=== PATIENT | female | born 1955 | race Caucasian/White ===

== ENCOUNTER → 2017-07-11 | Emergency (ER) | payer OTHER ==
[~2017-07-11] MED LIST: ALLEGRA30 MG PO; CIPRO500 MG PO; DICLOFENAC SODI50 MG PO; FLOVENT DI50 MCG/DIS IH; LOPRESSOR25 MG; NABUMETONE500 MG PO; PERCOCET 5/3251 TAB PO; PROTONIX40 MG PO; SIMVASTATIN20 MG; SINGULAIR10 MG; SYNTHROID75 MCG PO; ZANTAC150 MG PO; ZETIA10 MG; [UNRECOGNIZED DRUG - CODE]
== END | disposition left against medical advice (07) ==
LOC: ER 16:13
DX: Z53.20 Procedure and treatment not carried out because of patient's decision for unspecified reasons (principal)

== ENCOUNTER 2017-11-30 22:16 | Emergency (ER) | payer OTHER ==
[~2017-11-30] VITALS: Ht 149.9 cm; Wt 72.6 kg
[2017-11-30] MEDS ORDERED: OMEPRAZOLE20 M1 (22:30)
== END 2017-12-01 09:42 | disposition home or self-care (01) ==
LOC: ER 22:16
DX: J45.998 Other asthma (principal); R10.84 Generalized abdominal pain; J32.8 Other chronic sinusitis; K21.9 Gastro-esophageal reflux disease without esophagitis

== ENCOUNTER 2018-01-21 01:08 | Emergency (ER) | payer OTHER ==
[~2018-01-21] VITALS: Ht 152.4 cm; Wt 72.6 kg
[~2018-01-21 01:08] MED LIST changes: +OMEPRAZOLE20 M1
[2018-01-21] MEDS ORDERED: PEPCID40 MG PO (04:32)
== END 2018-01-21 04:44 | disposition home or self-care (01) ==
LOC: ER 01:08
DX: I16.0 Hypertensive urgency (principal); I10 Essential (primary) hypertension; K21.9 Gastro-esophageal reflux disease without esophagitis

== ENCOUNTER 2020-05-26 09:12 | Outpatient (CLI) | payer OTHER ==
[~2020-05-26 09:12] MED LIST changes: +PEPCID40 MG PO
== END 2020-05-26 18:00 | disposition home or self-care (01) ==
LOC: LAB 09:12
PROVIDERS: ATTEND Plastic Surgery
DX: U07.1 COVID-19 (principal)

== ENCOUNTER 2020-06-02 05:19 | Day surgery (SDC) | payer OTHER | END 2020-06-02 14:20 | disposition home or self-care (01) | LOC: CIR.AMB 05:19 | PROVIDERS: ATTEND Plastic Surgery | DX: N62 Hypertrophy of breast (principal) ==

== ENCOUNTER 2024-03-07 13:27 | Emergency (ER) | payer OTHER ==
[~2024-03-07] VITALS: Ht 152.4 cm; Wt 71.7 kg
[2024-03-07] MEDS ORDERED: CEPHALEXIN500 M1 PO (14:06)
[2024-03-07] MEDS ORDERED: FAMOtidine 10 MG/ML (4ML VIAL) IV STA (15:07)
[2024-03-07] MEDS ORDERED: MAG HYDROX/ALUMINUM HYD/SIMETH 30 ML BLIST.PACK PO STA (15:08)
[2024-03-07 15:46] LABS: HEMATOCRIT 38.5 % (36.0-45.00); HEMOGLOBIN 13.2 g/dL (12.0-15.00); MEAN CELL VOLUME 86.7 fL (80.00-100.00); MEAN CORPUSCULAR HEMOGLOBIN 29.7 pg (27.00-32.0); MEAN CORPUSCULAR HGB CONC 34.3 g/dl (32.0-36.0); PLATELET COUNT 262 K/uL (150-450); RED BLOOD COUNT 4.44 M/uL (4.00-6.00); RED CELL DISTRIBUTION WIDTH 13.7 % (11.5-14.5)
[2024-03-07 16:08] LABS: CALCIUM 8.9 mg/dL (8.5-10.1); CREATININE SERUM 0.67 mg/dL (0.55-1.02); GFR 87.01; POTASSIUM 4.07 mEq/L (3.5-5.1)
== END 2024-03-07 18:36 | disposition home or self-care (01) ==
LOC: ER 13:29
PROVIDERS: General Practice
DX: R04.0 Epistaxis (principal); R10.9 Unspecified abdominal pain; I10 Essential (primary) hypertension; E03.8 Other specified hypothyroidism; Z88.2 Allergy status to sulfonamides
CPT/HCPCS: 36415; 96365; 99282; J3490

== ENCOUNTER 2024-11-28 16:32 | Emergency (ER) | payer OTHER ==
[~2024-11-28] VITALS: Ht 154.9 cm; Wt 72.6 kg
[~2024-11-28 16:32] MED LIST changes: +CEPHALEXIN500 M1 PO
[2024-11-28] MEDS ORDERED: ACETAMINOPHEN 500 MG GEL..CAP PO ONE (17:58)
[2024-11-28 18:06] LABS: BASO % 0.6 % (0.1-1.2); EOS # 0.00 (0.04-0.54); EOS % 0.0 % (0.7-7.0); LYMPH # 0.35 (1.18-3.74); LYMPH % 5.2 % (19.3-53.1); MEAN PLATELET VOLUME 11.00 fl (9.4-12.4); MONO # 0.88 (0.24-0.82); NEUT # 5.44 (1.56-6.13); NEUT % 80.0 % (34.0-71.1); RED CELL DISTRIBUTION WIDTH 13.4 % (11.6-14.4)
[2024-11-28 18:07] LABS: MONO % 13.0 % (4.7-12.5)
[2024-11-28 18:34] LABS: ALT/SGPT 34.0 U/L (12-78); AST/SGOT 40.0 U/L (15-37); BILIRUBIN TOTAL 0.5 mg/dL (0.3-1.2); BUN CREA RATIO 22.0 (7.0-25.0); CREATININE SERUM 1.01 mg/dL (0.55-1.02); GFR 54.03; GLOBULINA 3.9 G/DL (2.4-3.5); GLUCOSE FASTING 115.0 mg/dL (65-100); OSMOLALITY SERUM 276.0 MOSM/KG (275-295)
[2024-11-28 18:49] LABS: COVID-19 AG NEGATIVE (NEGATIVE)
[2024-11-28 19:11] LABS: URINE APPEARANCE Clear; URINE BILIRRUBIN Negative (NEGATIVE); URINE BLOOD Negative; URINE COLOR Yellow; URINE GLUCOSE Negative (NEGATIVE); URINE KETONE 15 (NEGATIVE); URINE LEUKOCYTE Negative; URINE NITRATE Negative; URINE PROTEIN Negative (NEGATIVE); URINE UROBILINOGEN 0.2 E.U./dl
[2024-11-28 19:12] LABS: URINE BACTERIA 201.5 uL (0.0-1933); URINE EPITHELIAL CELLS 17.5 uL (0.0-38.8); URINE RBC 20.3 uL (0.0-20.8); URINE WBC 7.3 uL (0.0-23.2)
[2024-11-28 19:15] LABS: URINE CAST 0.14 uL (0.0-1.40)
[2024-11-28] MEDS ORDERED: CEFAZOLIN SODIUM 1,000 MG VIAL IV STA (20:03)
[2024-11-28] MEDS ORDERED: CEFAZOLIN SODIUM 1,000 MG VIAL ONE (20:23)
== END 2024-11-28 20:47 | disposition home or self-care (01) ==
LOC: ER 16:32
PROVIDERS: General Practice
DX: R14.3 Flatulence (principal); R14.2 Eructation; R11.10 Vomiting, unspecified; J10.1 Influenza due to other identified influenza virus with other respiratory manifestations; R10.9 Unspecified abdominal pain; Z20.822 Contact with and (suspected) exposure to COVID-19; E03.8 Other specified hypothyroidism; Z88.2 Allergy status to sulfonamides
CPT/HCPCS: 36415; 71046; 74177; 96365; 99284; J0690; Q9965

== ENCOUNTER 2024-12-06 16:48 | Emergency (ER) | payer OTHER ==
[~2024-12-06] VITALS: Ht 152.4 cm; Wt 72.1 kg
[2024-12-06] MEDS ORDERED: GRALISE600 MG PO (17:17)
[2024-12-06 19:59] LABS: BASO % 0.7 % (0.1-1.2); EOS # 0.01 (0.04-0.54); EOS % 0.1 % (0.7-7.0); LYMPH # 1.77 (1.18-3.74); LYMPH % 13.2 % (19.3-53.1); MEAN PLATELET VOLUME 10.80 fl (9.4-12.4); MONO # 0.86 (0.24-0.82); MONO % 6.4 % (4.7-12.5); NEUT # 10.08 (1.56-6.13); NEUT % 75.2 % (34.0-71.1); RED CELL DISTRIBUTION WIDTH 12.9 % (11.6-14.4)
[2024-12-06 20:38] LABS: NEUTROPHILS MAN 83.0 %
[2024-12-06 20:39] LABS: EOSINOPHIL MAN 1.0 %; LYMPHOCYTE MAN 9.0 %; MONOCYTE MAN 6.0 %
[2024-12-06 20:48] LABS: ALT/SGPT 32.0 U/L (12-78); AST/SGOT 32.0 U/L (15-37); BILIRUBIN TOTAL 0.41 mg/dL (0.3-1.2); BUN CREA RATIO 18.0 (7.0-25.0); CREATININE SERUM 0.85 mg/dL (0.55-1.02); GFR 65.93; GLOBULINA 3.9 G/DL (2.4-3.5); GLUCOSE FASTING 100.0 mg/dL (65-100); OSMOLALITY SERUM 269.0 MOSM/KG (275-295)
[2024-12-06 21:03] LABS: TSH 0.015 uIU/mL (0.358-3.74)
[2024-12-06 21:37] LABS: URINE APPEARANCE Clear; URINE BILIRRUBIN Negative (NEGATIVE); URINE BLOOD Negative; URINE COLOR Yellow; URINE GLUCOSE Negative (NEGATIVE); URINE KETONE Negative (NEGATIVE); URINE LEUKOCYTE Trace; URINE NITRATE Negative; URINE PROTEIN Negative (NEGATIVE); URINE UROBILINOGEN 0.2 E.U./dl
[2024-12-06 21:39] LABS: URINE BACTERIA 268.8 uL (0.0-1933); URINE EPITHELIAL CELLS 20.6 uL (0.0-38.8); URINE RBC 4.9 uL (0.0-20.8); URINE WBC 16.9 uL (0.0-23.2)
[2024-12-06 21:45] LABS: URINE CAST 0.00 uL (0.0-1.40)
== END 2024-12-06 22:24 ==
LOC: ER 16:48
PROVIDERS: Emergency Medicine
DX: R79.89 Other specified abnormal findings of blood chemistry (principal); E05.90 Thyrotoxicosis, unspecified without thyrotoxic crisis or storm; I10 Essential (primary) hypertension; F41.9 Anxiety disorder, unspecified; R07.89 Other chest pain; Z88.8 Allergy status to other drugs, medicaments and biological substances